=== PATIENT | male | born 1970 | race Two or more races ===

== ENCOUNTER 2020-05-10 13:02 | Emergency (ER) | payer SELFPAY ==
[~2020-05-10] VITALS: Ht 170.2 cm; Wt 65.9 kg
[2020-05-10] MEDS ORDERED: FLUORESCEIN OPHTH TEST STRIP. ONE (13:29)
[2020-05-10] MEDS ORDERED: TETRACAINE 0.5% OPHTH SOLUTION 4ML BOTTLE. ONE (13:30)
[2020-05-10] MEDS ORDERED: ERYT1OIN6 OP (13:48)
--- NOTE | 2020-05-10 13:48 | PHYS DOC ---
Past Medical History Past Medical History: No Pertinent History Past Surgical History: Other Additional Past Surgical Histo: L KNEE Smoking Status: Never Smoker Alcohol Use: None General Adult EDM: Chief Complaint: EYE PROBLEMS HPI: HPI: Patient is a 50 year old male who presents with chopping wood yesterday was not wearing protective eyewear. Patient states a piece of wood or something got into his eye yesterday as it was very windy. He states that he just feels like something is in his eye and he rates his irritated eye pain at a 7 out of 10. His last tetanus was a year ago. He states he has been using saline drops for his eye but is not helping. He denies vision changes, light sensitivity. Review of Systems: Review of Systems: Constitutional: Denies fever or chills. [] Eyes: Denies change in visual acuity. + Left eye pain] HENT: Denies nasal congestion or sore throat. [] Respiratory: Denies cough or shortness of breath. [] Cardiovascular: Denies chest pain or edema. [] GI: Denies abdominal pain, nausea, vomiting, bloody stools or diarrhea. [] : Denies dysuria. [] Musculoskeletal: Denies back pain or joint pain. [] Integument: Denies rash. [] Neurologic: Denies headache, focal weakness or sensory changes. [] Endocrine: Denies polyuria or polydipsia. [] Lymphatic: Denies swollen glands. [] Psychiatric: Denies depression or anxiety. [] Heart Score: Risk Factors: Risk Factors: DM, Current or recent (<one month) smoker, HTN, HLP, family history of CAD, obesity. Risk Scores: Score 0 - 3: 2.5% MACE over next 6 weeks - Discharge Home Score 4 - 6: 20.3% MACE over next 6 weeks - Admit for Clinical Observation Score 7 - 10: 72.7% MACE over next 6 weeks - Early Invasive Strategies Current Medications: Current Medications Medications (Trade) Dose Ordered Sig/Britt Start Time Stop Time Status Last Admin Dose Admin Fluorescein Sodium (Ful-Kia) 1 strip STK-MED ONCE 05/10/20 13:29 05/10/20 13:30 DC Tetracaine HCl (Tetracaine) 40 drop STK-MED ONCE 05/10/20 13:30 05/10/20 13:30 DC Allergies: Allergies: Allergies Coded Allergies Type Severity Reaction Last Updated Verified No Known Drug Allergies 05/10/20 No Physical Exam: PE: Constitutional: Well developed, well nourished, no acute distress, non-toxic appearance. [] HENT: Normocephalic, atraumatic, bilateral external ears normal, oropharynx moist, no oral exudates, nose normal. [] Eyes: PERRLA, EOMI, conjunctiva normal but left outer eye abrasion noted, no discharge. [] Neck: Normal range of motion, no tenderness, supple, no stridor. [] Cardiovascular:Heart rate regular rhythm, no murmur [] Lungs & Thorax: Bilateral breath sounds clear to auscultation [] Abdomen: Bowel sounds normal, soft, no tenderness, no masses, no pulsatile masses. [] Skin: Warm, dry, no erythema, no rash. [] Back: No tenderness, no CVA tenderness. [] Extremities: No tenderness, no cyanosis, no clubbing, ROM intact, no edema. [] Neurologic: Alert and oriented X 3, normal motor function, normal sensory function, no focal deficits noted. [] Psychologic: Affect normal, judgement normal, mood normal. [] Current Patient Data: Vital Signs: Vital Signs Date Time Temp Pulse Resp B/P (MAP) Pulse Ox O2 Delivery O2 Flow Rate FiO2 05/10/20 13:22 98.6 74 16 99 Room Air 98.6 EKG: EKG: [] Radiology/Procedures: Radiology/Procedures: [] Course & Med Decision Making: Course & Med Decision Making Pertinent Labs and Imaging studies reviewed. (See chart for details) See HPI. No eye swelling. No foreign body seen in the eye. Full range of motion of the eye without any pain. Patient is given a prescription for antibiotic ointment for his eye. He will follow up with a office admin if needed. Eye Exam Visual accuity: Eye exam: PERRL, Extraocular muscles intact. No signs of ruptured globe. Sclera clear. Red reflex present. Foreign body: No foreign bodies seen with examination or with lid flip exam. No foreign body seen in the conjunctiva Kadeem-pen: Fluorescein test: Left corneal abrasion does not is smaller than a armin sized. Anesthetic: Tetracaine [] Dragon Disclaimer: Dragon Disclaimer: This electronic medical record was generated, in whole or in part, using a voice recognition dictation system. Departure Departure Impression: Primary Impression: Corneal abrasion, left Qualified Codes: S05.02XA - Injury of conjunctiva and corneal abrasion without foreign body, left eye, initial encounter Disposition: 01 DC HOME SELF CARE/HOMELESS Condition: STABLE Referrals: NO PCP (PCP) Patient Instructions: Eye - Corneal Abrasion Additional Instructions: Follow-up with an eye doctor if needed. Use antibiotic for your eye as prescribed. Try not to rub the eye. Scripts Erythromycin Base (Erythromycin) 1 Gm Oint...g. 1 GM OP QID for 7 Days, #1 MISC Prov: SERGEY MICHAUD APRN 05/10/20 SERGEY MICHAUD APRN May 10, 2020 13:48
== END 2020-05-10 14:02 | disposition home or self-care (01) ==
LOC: ER 13:02
DX: S05.02XA Injury of conjunctiva and corneal abrasion without foreign body, left eye, initial encounter (principal); Z98.890 Other specified postprocedural states; W45.8XXA Other foreign body or object entering through skin, initial encounter; Y93.89 Activity, other specified; Y92.89 Other specified places as the place of occurrence of the external cause; Y99.8 Other external cause status
CPT/HCPCS: 99283